=== PATIENT | female | born 1950 | race Caucasian/White ===

== ENCOUNTER 2018-04-11 14:38 | Emergency (ER) | payer OTHER ==
[~2018-04-11] VITALS: Ht 160 cm; Wt 70.3 kg
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
[2018-04-11] MEDS ORDERED: HYDROCODONE/APAP 5/325MG 1 EACH TABLET PO ONE (15:30)
[2018-04-11] MEDS ORDERED: HYDROCODONE/APAP 5/325MG 1 EACH TABLET ONE (15:31)
--- NOTE | 2018-04-11 16:57 | NUR ---
TECH AT BEDSIDE APPLYING SHORT LEG POSTERIOR RIGHT CAST ORDERED .
--- NOTE | 2018-04-11 17:20 | NUR ---
Patient discharged to home in stable condition. Written and verbal after care instructions given. Patient verbalizes understanding of instruction. accompanied to lobby via wheelchair with austin mcmahan ,
[2018-04-11 17:22] VITALS: BP 135/57
== END 2018-04-11 17:23 | disposition home or self-care (01) ==
LOC: ER 14:50
DX: S82.831A Other fracture of upper and lower end of right fibula, initial encounter for closed fracture (principal); S60.011A Contusion of right thumb without damage to nail, initial encounter; E11.9 Type 2 diabetes mellitus without complications; V79.59XA Passenger on bus injured in collision with other motor vehicles in traffic accident, initial encounter; Y93.89 Activity, other specified; Y92.411 Interstate highway as the place of occurrence of the external cause; Y99.8 Other external cause status
CPT/HCPCS: 73140-TC; 73610-TC; A4606; Z7610